=== PATIENT | male | born 1980 | race Caucasian/White ===

== ENCOUNTER 2024-09-19 08:41 | Emergency (ER) | payer OTHER ==
[2024-09-19 08:46] VITALS: TEMP 98; BMI 22.2
[2024-09-19] MEDS ORDERED: morphine SULFATE 4 MG/ML VIAL ONE (09:28)
[2024-09-19] MEDS ORDERED: ONDANSETRON 4 MG/2 ML VIAL ONE (09:28)
[2024-09-19] MEDS: morphine SULFATE 4 MG/ML VIAL IVPUSH ONE (10:05)
[2024-09-19] MEDS: SODIUM CHLORIDE 1,000 ML IV STA (10:05)
[2024-09-19] MEDS: ONDANSETRON 4 MG/2 ML VIAL IVPUSH ONE (10:05)
[2024-09-19 10:13] LABS: ABSOLUTE IMMATURE GRANULOCYTES 0.02 x10^3/uL (0.0-0.031); BASOPHILS # 0.02 x10^3/uL (0.01-0.08); EOSINOPHIL % 3.9 % (0.8-7.0); EOSINOPHILS # 0.18 x10^3/uL (0.04-0.54); HEMATOCRIT 46.7 % (40.1-51.0); HEMOGLOBIN 15.1 g/dL (13.7-17.5); MCHC 32.3 g/dl (32.3-36.5); MEAN CELL VOLUME 88.4 fl (79.0-92.2); MEAN PLT VOLUME 9.9 fl (9.4-12.4); MONOCYTE # 0.48 x10^3/uL (0.30-0.82); MONOCYTE % 10.5 % (5.3-12.2); PH,URINE 8.5 (5.0-8.0); PLATELET COUNT 276 x10^3/uL (163-337); RDW 12.8 % (12.1-15.9); URINE APPEARANCE CLEAR; URINE BILIRUBIN NEGATIVE (NEGATIVE); URINE COLOR YELLOW; URINE GLUCOSE (UA) NEGATIVE (NEGATIVE); URINE KETONE NEGATIVE (NEGATIVE); URINE LEUK ESTERASE NEGATIVE (NEGATIVE); URINE NITRITE NEGATIVE (NEGATIVE); URINE PROTEIN NEGATIVE (NEGATIVE); URINE UROBILINOGEN 0.2 mg/dL (0.2-1.0)
[2024-09-19 11:21] LABS: POTASSIUM 4.9 mmol/L (3.5-5.1)
[2024-09-19 11:23] LABS: ALBUMIN 3.9 g/dl (3.4-5.0); BLOOD UREA NITROGEN 9.8 mg/dL (7-18); CALCIUM 9.6 mg/dL (8.5-10.1)
[2024-09-19 11:26] LABS: CREATININE 0.9 mg/dL (0.55-1.3)
[2024-09-19 11:28] LABS: BILIRUBIN,TOTAL 0.6 mg/dL (0.2-1); TOT PROT 7.5 g/dl (6.4-8.2)
[2024-09-19 12:35] LABS: HIV INTERPRETATION NEGATIVE (NEGATIVE)
[2024-09-19 12:38] LABS: HCV DIAGNOSTIC IN-HOUSE W/RFLX NON-REACTIVE (NONREACTIVE)
[2024-09-19 13:32] VITALS: BP 106/74; PULSE 94; RESP 16
[2024-09-19] MEDS ORDERED: KETOROLAC TROMETHAMINE 30 MG/1 ML VIAL ONE (14:51)
[2024-09-19] MEDS: KETOROLAC TROMETHAMINE 30 MG/1 ML VIAL IM ONE (14:57)
== END 2024-09-19 15:49 | disposition home or self-care (01) ==
LOC: JER 08:41
PROC: 3E03329 Introduction of Other Anti-infective into Peripheral Vein, Percutaneous Approach (ICD-10-PCS; principal; 2024-09-19)
PROC: 3E033NZ Introduction of Analgesics, Hypnotics, Sedatives into Peripheral Vein, Percutaneous Approach (ICD-10-PCS; 2024-09-19)
PROC: 3E033GC Introduction of Other Therapeutic Substance into Peripheral Vein, Percutaneous Approach (ICD-10-PCS; 2024-09-19)
PROC: 3E0337Z Introduction of Electrolytic and Water Balance Substance into Peripheral Vein, Percutaneous Approach (ICD-10-PCS; 2024-09-19)
PROC: 3E0233Z Introduction of Anti-inflammatory into Muscle, Percutaneous Approach (ICD-10-PCS; 2024-09-19)
DX: N45.2 Orchitis (principal); R10.31 Right lower quadrant pain
CPT/HCPCS: 36415; 74177-TC; 76870-TC; 80053; 81003; 83605; 83690; 85025; 86803; 87086; 87389; 87491; 87591; 99285-25